=== PATIENT | female | born 1975 | race Caucasian/White ===

== ENCOUNTER → 2022-07-08 | Day surgery (SDC) | payer BC ==
[~2022-07-08] VITALS: Ht 170.2 cm; Wt 95.3 kg
[~2022-07-08] MED LIST: CETI10CA2 PO; CLINDAMYCIN IN 0.9 % SOD CHLOR 50 ML IV ONE; DEXAMETHASONE 4MG/ML 1ML VIAL ONE; FENTANYL CITRATE/PF 50MCG/ML 2ML VIAL IV PRN; FENTANYL CITRATE/PF 50MCG/ML 2ML VIAL ONE; HYDR25TA PO; LACTATED RINGERS 1,000 ML IV SCH; LIDOCAINE HCL 1% 10 MG/ML 10ML VIAL ONE; LOSA50TA41 PO; METO-539 PO; METOCLOPRAMIDE HCL 10MG/2ML VIAL ONE; ONDANSETRON HCL 4MG/2ML INJ ONE; PHENYLEPHRINE HCL 10 MG/ML 1ML (IV VIAL) IV ONE; PROPOFOL 200MG/20ML VIAL IV ONE; PROT40 PO; SKIN ADHESIVE 0.7 GM EA TOP ONE; TRAM50TA3 MT; TRAMADOL 50MG TABLET PO PRN
[2022-07-08 06:09] LABS: UCG SCREEN NEGATIVE
== END | disposition home or self-care (01) ==
LOC: OR 05:31
PROVIDERS: ATTEND Surgery
DX: Z45.811 Encounter for adjustment or removal of right breast implant (principal); Z45.812 Encounter for adjustment or removal of left breast implant; I10 Essential (primary) hypertension; D64.9 Anemia, unspecified; K21.9 Gastro-esophageal reflux disease without esophagitis; Z79.899 Other long term (current) drug therapy; Z98.890 Other specified postprocedural states; Z20.822 Contact with and (suspected) exposure to COVID-19
CPT/HCPCS: 19328; 81025; 87426; 88300; C9803; J1100; J2370; J2405; J2704; J2765; J3010; J3490